=== PATIENT | male | born 1960 | race Caucasian/White ===

== ENCOUNTER → 2017-04-17 | Outpatient (CLI) | payer MEDICARE, OTHER ==
[2015-07-16 08:45] VITALS: BP 138/83
[~2017-04-17] MED LIST: DABI150C PO; DEXL60CA2 PO; SIMV40TA3 PO; TRAM50TA PO
--- NOTE | 2017-04-19 19:09 | EEG ---
DATE OF SERVICE: 04/17/2017 EEG#: [id number]. OBJECTIVE: The patient is a 56-year-old male with history of traumatic brain injury who has had some seizures. DESCRIPTION: This is a digital study. Electrodes are placed according to the international 10-20 system. Bipolar and referential montages are available. Activation procedures typically include hyperventilation and intermittent photic stimulation. INTERPRETATION: The waking background consists of 10 Hz, 50-100 microvolt activity. I do not detect reactivity to eye opening because the patient remains tense during much of the recording and there is quite a bit of muscle artifact and the patient is also legally blind. Hyperventilation is performed with no change in electroencephalogram patterns. Intermittent photic stimulation is noncontributory. Sleep is not achieved. IMPRESSION: This electroencephalogram with the patient awake only is within normal limits. There is no focal, paroxysmal, or epileptiform activity. VERA PARIKH MD DR: YASHIRA/adiel JOB#: [id number] / [id number] NGHIA Martinez
== END | disposition home or self-care (01) ==
LOC: RT 07:58
PROVIDERS: ATTEND Psychiatry & Neurology Neurology with Special Qualifications in Child Neurology
DX: R56.9 Unspecified convulsions (principal); R06.4 Hyperventilation; Z87.820 Personal history of traumatic brain injury
CPT/HCPCS: 95816

== ENCOUNTER → 2017-10-19 | Outpatient (CLI) | payer MEDICARE, OTHER | END | disposition home or self-care (01) | LOC: US 11:38 | DX: S81.801A Unspecified open wound, right lower leg, initial encounter (principal); Z86.718 Personal history of other venous thrombosis and embolism; X58.XXXA Exposure to other specified factors, initial encounter; Y93.89 Activity, other specified; Y92.89 Other specified places as the place of occurrence of the external cause; Y99.8 Other external cause status | CPT/HCPCS: 93925; 93970 ==

== ENCOUNTER → 2018-02-07 | Outpatient (CLI) | payer MEDICARE, OTHER | END | disposition home or self-care (01) | LOC: PMGWOUND 11:15 | DX: I87.331 Chronic venous hypertension (idiopathic) with ulcer and inflammation of right lower extremity (principal); L97.211 Non-pressure chronic ulcer of right calf limited to breakdown of skin; I10 Essential (primary) hypertension; E78.5 Hyperlipidemia, unspecified; M19.90 Unspecified osteoarthritis, unspecified site; F32.9 Major depressive disorder, single episode, unspecified; F41.9 Anxiety disorder, unspecified; Z86.718 Personal history of other venous thrombosis and embolism | CPT/HCPCS: 29581 ==

== ENCOUNTER → 2018-02-16 | Outpatient (CLI) | payer MEDICARE, OTHER | END | disposition home or self-care (01) | LOC: PMGWOUND 09:19 | DX: I87.331 Chronic venous hypertension (idiopathic) with ulcer and inflammation of right lower extremity (principal); L97.212 Non-pressure chronic ulcer of right calf with fat layer exposed; I10 Essential (primary) hypertension; E78.5 Hyperlipidemia, unspecified; M19.90 Unspecified osteoarthritis, unspecified site; F32.9 Major depressive disorder, single episode, unspecified; F41.9 Anxiety disorder, unspecified; Z86.718 Personal history of other venous thrombosis and embolism | CPT/HCPCS: 29581; 97597 ==

== ENCOUNTER → 2018-02-23 | Outpatient (CLI) | payer MEDICARE, OTHER ==
[2015-07-16 08:45] VITALS: BP 138/83
== END | disposition home or self-care (01) ==
LOC: PMGWOUND 08:58
PROVIDERS: ATTEND Preventive Medicine Undersea and Hyperbaric Medicine
DX: I87.331 Chronic venous hypertension (idiopathic) with ulcer and inflammation of right lower extremity (principal); L97.211 Non-pressure chronic ulcer of right calf limited to breakdown of skin; E78.5 Hyperlipidemia, unspecified; M19.90 Unspecified osteoarthritis, unspecified site; F32.9 Major depressive disorder, single episode, unspecified; F41.9 Anxiety disorder, unspecified; Z86.718 Personal history of other venous thrombosis and embolism
CPT/HCPCS: 29581

== ENCOUNTER → 2018-03-02 | Outpatient (CLI) | payer MEDICARE, OTHER ==
[2015-07-16 08:45] VITALS: BP 138/83
== END | disposition home or self-care (01) ==
LOC: PMGWOUND 08:11
PROVIDERS: ATTEND Preventive Medicine Undersea and Hyperbaric Medicine
DX: I87.331 Chronic venous hypertension (idiopathic) with ulcer and inflammation of right lower extremity (principal); L97.211 Non-pressure chronic ulcer of right calf limited to breakdown of skin; I10 Essential (primary) hypertension; E78.5 Hyperlipidemia, unspecified; M19.90 Unspecified osteoarthritis, unspecified site; F32.9 Major depressive disorder, single episode, unspecified; F41.9 Anxiety disorder, unspecified; Z86.718 Personal history of other venous thrombosis and embolism
CPT/HCPCS: 99213

== ENCOUNTER → 2018-03-09 | Outpatient (CLI) | payer MEDICARE, OTHER ==
[2015-07-16 08:45] VITALS: BP 138/83
== END | disposition home or self-care (01) ==
LOC: PMGWOUND 08:36
PROVIDERS: ATTEND Preventive Medicine Undersea and Hyperbaric Medicine
DX: I87.331 Chronic venous hypertension (idiopathic) with ulcer and inflammation of right lower extremity (principal); L97.211 Non-pressure chronic ulcer of right calf limited to breakdown of skin; I10 Essential (primary) hypertension; M19.90 Unspecified osteoarthritis, unspecified site; E78.4 Other hyperlipidemia; F41.9 Anxiety disorder, unspecified; E66.01 Morbid (severe) obesity due to excess calories; G43.909 Migraine, unspecified, not intractable, without status migrainosus; F32.9 Major depressive disorder, single episode, unspecified; Z68.36 Body mass index [BMI] 36.0-36.9, adult; Z86.73 Personal history of transient ischemic attack (TIA), and cerebral infarction without residual deficits; Z86.718 Personal history of other venous thrombosis and embolism
CPT/HCPCS: 99214; G0463

== ENCOUNTER → 2018-03-16 | Outpatient (CLI) | payer MEDICARE, OTHER ==
[2015-07-16 08:45] VITALS: BP 138/83
== END | disposition home or self-care (01) ==
LOC: PMGWOUND 09:12
PROVIDERS: ATTEND Preventive Medicine Undersea and Hyperbaric Medicine
DX: I87.331 Chronic venous hypertension (idiopathic) with ulcer and inflammation of right lower extremity (principal); L97.211 Non-pressure chronic ulcer of right calf limited to breakdown of skin; G43.909 Migraine, unspecified, not intractable, without status migrainosus; M19.90 Unspecified osteoarthritis, unspecified site; E78.4 Other hyperlipidemia; E66.01 Morbid (severe) obesity due to excess calories; F41.9 Anxiety disorder, unspecified; F32.9 Major depressive disorder, single episode, unspecified; Z68.36 Body mass index [BMI] 36.0-36.9, adult; Z86.73 Personal history of transient ischemic attack (TIA), and cerebral infarction without residual deficits; Z86.718 Personal history of other venous thrombosis and embolism
CPT/HCPCS: 29581

== ENCOUNTER → 2018-03-23 | Outpatient (CLI) | payer MEDICARE, OTHER ==
[2015-07-16 08:45] VITALS: BP 138/83
== END | disposition home or self-care (01) ==
LOC: PMGWOUND 08:50
PROVIDERS: ATTEND Preventive Medicine Undersea and Hyperbaric Medicine
DX: I87.331 Chronic venous hypertension (idiopathic) with ulcer and inflammation of right lower extremity (principal); L97.211 Non-pressure chronic ulcer of right calf limited to breakdown of skin; F32.9 Major depressive disorder, single episode, unspecified; F41.9 Anxiety disorder, unspecified; M19.90 Unspecified osteoarthritis, unspecified site; G43.909 Migraine, unspecified, not intractable, without status migrainosus; E78.4 Other hyperlipidemia; E66.01 Morbid (severe) obesity due to excess calories; Z68.36 Body mass index [BMI] 36.0-36.9, adult
CPT/HCPCS: 29581

== ENCOUNTER → 2018-03-30 | Outpatient (CLI) | payer MEDICARE, OTHER ==
[2015-07-16 08:45] VITALS: BP 138/83
== END | disposition home or self-care (01) ==
LOC: PMGWOUND 08:53
PROVIDERS: ATTEND Preventive Medicine Undersea and Hyperbaric Medicine
DX: I87.311 Chronic venous hypertension (idiopathic) with ulcer of right lower extremity (principal); L97.211 Non-pressure chronic ulcer of right calf limited to breakdown of skin; F41.9 Anxiety disorder, unspecified; F32.9 Major depressive disorder, single episode, unspecified; G43.909 Migraine, unspecified, not intractable, without status migrainosus; E78.4 Other hyperlipidemia; M19.90 Unspecified osteoarthritis, unspecified site; E66.01 Morbid (severe) obesity due to excess calories; Z68.36 Body mass index [BMI] 36.0-36.9, adult; Z86.73 Personal history of transient ischemic attack (TIA), and cerebral infarction without residual deficits; Z86.718 Personal history of other venous thrombosis and embolism
CPT/HCPCS: 29581

== ENCOUNTER → 2018-04-06 | Outpatient (CLI) | payer MEDICARE, OTHER ==
[2015-07-16 08:45] VITALS: BP 138/83
== END | disposition home or self-care (01) ==
LOC: PMGWOUND 09:05
PROVIDERS: ATTEND Nurse Practitioner Family
DX: I87.331 Chronic venous hypertension (idiopathic) with ulcer and inflammation of right lower extremity (principal); L89.892 Pressure ulcer of other site, stage 2; F41.9 Anxiety disorder, unspecified; F32.9 Major depressive disorder, single episode, unspecified; G43.909 Migraine, unspecified, not intractable, without status migrainosus; E78.4 Other hyperlipidemia; M19.90 Unspecified osteoarthritis, unspecified site; E66.01 Morbid (severe) obesity due to excess calories; Z68.36 Body mass index [BMI] 36.0-36.9, adult; Z86.73 Personal history of transient ischemic attack (TIA), and cerebral infarction without residual deficits; Z86.718 Personal history of other venous thrombosis and embolism
CPT/HCPCS: 99213

== ENCOUNTER → 2018-04-13 | Outpatient (CLI) | payer MEDICARE, OTHER ==
[2015-07-16 08:45] VITALS: BP 138/83
== END | disposition home or self-care (01) ==
LOC: PMGWOUND 09:11
PROVIDERS: ATTEND Preventive Medicine Undersea and Hyperbaric Medicine
DX: I87.331 Chronic venous hypertension (idiopathic) with ulcer and inflammation of right lower extremity (principal); L97.212 Non-pressure chronic ulcer of right calf with fat layer exposed; F41.9 Anxiety disorder, unspecified; F32.9 Major depressive disorder, single episode, unspecified; G43.909 Migraine, unspecified, not intractable, without status migrainosus; E78.4 Other hyperlipidemia; M19.90 Unspecified osteoarthritis, unspecified site; F44.5 Conversion disorder with seizures or convulsions; E66.01 Morbid (severe) obesity due to excess calories; Z68.36 Body mass index [BMI] 36.0-36.9, adult; Z86.718 Personal history of other venous thrombosis and embolism; Z86.73 Personal history of transient ischemic attack (TIA), and cerebral infarction without residual deficits; X58.XXXS Exposure to other specified factors, sequela
CPT/HCPCS: 29581; 97597

== ENCOUNTER → 2018-04-20 | Outpatient (CLI) | payer MEDICARE, OTHER ==
[2015-07-16 08:45] VITALS: BP 138/83
== END | disposition home or self-care (01) ==
LOC: PMGWOUND 09:00
PROVIDERS: ATTEND Preventive Medicine Undersea and Hyperbaric Medicine
DX: I87.331 Chronic venous hypertension (idiopathic) with ulcer and inflammation of right lower extremity (principal); L97.211 Non-pressure chronic ulcer of right calf limited to breakdown of skin; F32.9 Major depressive disorder, single episode, unspecified; F41.9 Anxiety disorder, unspecified; F44.5 Conversion disorder with seizures or convulsions; G43.909 Migraine, unspecified, not intractable, without status migrainosus; M19.90 Unspecified osteoarthritis, unspecified site; E78.4 Other hyperlipidemia; E66.01 Morbid (severe) obesity due to excess calories; Z68.36 Body mass index [BMI] 36.0-36.9, adult; Z86.718 Personal history of other venous thrombosis and embolism; Z86.73 Personal history of transient ischemic attack (TIA), and cerebral infarction without residual deficits
CPT/HCPCS: 29581

== ENCOUNTER → 2018-04-26 | Outpatient (CLI) | payer MEDICARE, OTHER ==
[2015-07-16 08:45] VITALS: BP 138/83
--- NOTE | 2018-04-26 13:41 | RAD ---
MR#: [id number] Date of Study: 04/26/2018 Ordering Physician: BLUE RAND, Referring Physician: Nedra STEWARD: Vero Locke RDMS RVT APPROVED REPORT Right Lower Extremity Venous Study for DVT Patient Location: OUT-PATIENT Indications NON HEALING WOUND RT LEG Findings Grayscale images of the right lower extremity deep veins were obtained. Technically limited images in the mid to distal SFA and below-knee segments. The common femoral vein, proximal and mid superficial femoral veins appear clearly compressible with normal color Doppler flow. There is no evidence of thrombus at the saphenofemoral junction. The distal superficial femoral vein is not well visualized. Popliteal segments are not well visualize d. Nonetheless, color Doppler flow is noted in the distal superficial femoral and popliteal veins. Be low-knee vessels were not well visualized but there is spontaneous flow noted. Critical Notification Critical Value: No <Conclusion> No convincing evidence of DVT in the right lower extremity although technically limited images at the level of the knee and below the knee. Signed by : Reno Caraballo, Electronically Approved : 04/26/2018 13:40:16
== END | disposition home or self-care (01) ==
LOC: US 12:14
PROVIDERS: ATTEND Internal Medicine Cardiovascular Disease
DX: S81.801D Unspecified open wound, right lower leg, subsequent encounter (principal); I10 Essential (primary) hypertension; Z86.73 Personal history of transient ischemic attack (TIA), and cerebral infarction without residual deficits; Z86.718 Personal history of other venous thrombosis and embolism; X58.XXXD Exposure to other specified factors, subsequent encounter
CPT/HCPCS: 93971

== ENCOUNTER → 2018-04-26 | Outpatient (CLI) | payer MEDICARE, OTHER ==
[2015-07-16 08:45] VITALS: BP 138/83
== END | disposition home or self-care (01) ==
LOC: PMGWOUND 08:25
PROVIDERS: ATTEND Preventive Medicine Undersea and Hyperbaric Medicine
DX: I87.331 Chronic venous hypertension (idiopathic) with ulcer and inflammation of right lower extremity (principal); L97.211 Non-pressure chronic ulcer of right calf limited to breakdown of skin; I10 Essential (primary) hypertension; F32.9 Major depressive disorder, single episode, unspecified; F41.9 Anxiety disorder, unspecified; G43.909 Migraine, unspecified, not intractable, without status migrainosus; F44.5 Conversion disorder with seizures or convulsions; M19.90 Unspecified osteoarthritis, unspecified site; E78.49 Other hyperlipidemia; E66.01 Morbid (severe) obesity due to excess calories; Z68.36 Body mass index [BMI] 36.0-36.9, adult; Z86.718 Personal history of other venous thrombosis and embolism; Z86.73 Personal history of transient ischemic attack (TIA), and cerebral infarction without residual deficits
CPT/HCPCS: 29581

== ENCOUNTER → 2018-05-04 | Outpatient (CLI) | payer MEDICARE, OTHER ==
[2015-07-16 08:45] VITALS: BP 138/83
== END | disposition home or self-care (01) ==
LOC: PMGWOUND 10:32
PROVIDERS: ATTEND Preventive Medicine Undersea and Hyperbaric Medicine
DX: I87.331 Chronic venous hypertension (idiopathic) with ulcer and inflammation of right lower extremity (principal); L97.211 Non-pressure chronic ulcer of right calf limited to breakdown of skin; F41.9 Anxiety disorder, unspecified; F32.9 Major depressive disorder, single episode, unspecified; G43.909 Migraine, unspecified, not intractable, without status migrainosus; E78.49 Other hyperlipidemia; M19.90 Unspecified osteoarthritis, unspecified site; E66.01 Morbid (severe) obesity due to excess calories; Z68.36 Body mass index [BMI] 36.0-36.9, adult; Z86.718 Personal history of other venous thrombosis and embolism
CPT/HCPCS: 29581

== ENCOUNTER → 2018-05-10 | Outpatient (CLI) | payer MEDICARE, OTHER ==
[2015-07-16 08:45] VITALS: BP 138/83
== END | disposition home or self-care (01) ==
LOC: PMGWOUND 08:17
PROVIDERS: ATTEND Emergency Medicine Undersea and Hyperbaric Medicine
DX: I87.331 Chronic venous hypertension (idiopathic) with ulcer and inflammation of right lower extremity (principal); L97.211 Non-pressure chronic ulcer of right calf limited to breakdown of skin; F41.9 Anxiety disorder, unspecified; F32.9 Major depressive disorder, single episode, unspecified; G43.909 Migraine, unspecified, not intractable, without status migrainosus; E78.49 Other hyperlipidemia; M19.90 Unspecified osteoarthritis, unspecified site; E66.01 Morbid (severe) obesity due to excess calories; Z68.36 Body mass index [BMI] 36.0-36.9, adult; Z86.718 Personal history of other venous thrombosis and embolism; Z86.73 Personal history of transient ischemic attack (TIA), and cerebral infarction without residual deficits
CPT/HCPCS: 99213

== ENCOUNTER → 2018-06-11 | Outpatient (CLI) | payer MEDICARE, OTHER ==
[2015-07-16 08:45] VITALS: BP 138/83
[~2018-06-11] MED LIST changes: +LIDOCAINE 1%/EPI 1:100,000 25 ML, SODIUM BICARBONATE VIAL 2.5 MEQ in IV NORMAL SALINE 5... SQ STA
--- NOTE | 2018-06-11 15:18 | CARD ---
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 HISTORY The patient is a 58 year-old male with a history of : Non healing Ulcer. INDICATION FOR PROCEDURE The indication(s) include : Symptomatic Chronic Venous Insufficiency s/p RF ablation of right GSV/LSV with non healing wound right lower extremity from sociology research assistant vein incompetency.. PROCEDURE NARRATIVE The patient was transferred to the procedure suite and the insufficient sociology research assistant veins were mapped by ultrasound and diagrammed on the underlying skin The patient was then positioned supine on the pr ocedure table. The entire limb was sterilely prepared and the lower extremity and treatment table we re sterilely draped. The RF stylet catheter was placed on the sterile field, flushed and wiped down , prepared, and connected by a sterile cable. The patient was placed in reverse-Trendelenburg position and local anesthesia was instilled in the sk in overlying the access site. A skin incision was made overlying the identified and mapped Perforato r vein entry site. The vein was punctured through the incision and using ultrasound guidance the RF stylet catheter was advanced into the Senior Research Analyst vein. After the RF probe position was verified by t he ultrasound, tumescent anesthesia was infiltrated, under ultrasound guidance, precisely into the pe rivenuus compartment a "halo" of fluid was noted around the vein. The patient was then placed in Trendelenburg position. After the RF probe position was again confirm ed with ultrasound imaging, moderate external compression was applied over the RF heating element, an d RF energy was applied. The probe was withdrawn while treating the incompetent sociology research assistant vein in a ll four quadrants each quadrant being trreated for 30 seconds. Repeat ultrasound of the Senior Research Analyst v ein was performed confirming successful treatment. The catheter and sheath were withdrawn and hemost asis established with direct pressure. Total treatment time for the Senior Research Analyst vein 6 minutes. After assuring hemostasis, the skin incisions over sociology research assistant veins were closed with a bandage and an external compression dressing was applied from the level of the foot to the most proximal level of t he thigh. Patient tolerated the procedure well. There were no immediate complications. Signed by : Blue Dixon, Electronically Approved : 06/11/2018 15:17:30
== END ==
LOC: VNUS 09:00
PROVIDERS: ATTEND Internal Medicine Cardiovascular Disease
DX: I87.331 Chronic venous hypertension (idiopathic) with ulcer and inflammation of right lower extremity (principal)
CPT/HCPCS: 36475; J3490; J7040

== ENCOUNTER → 2020-12-14 | Outpatient (CLI) | payer MEDICARE, OTHER ==
[2015-07-16 08:45] VITALS: BP 138/83
[~2020-12-14] MED LIST changes: -LIDOCAINE 1%/EPI 1:100,000 25 ML, SODIUM BICARBONATE VIAL 2.5 MEQ in IV NORMAL SALINE 5... SQ STA; +SIMV40TA18 PO; -SIMV40TA3 PO
--- NOTE | 2020-12-15 07:56 | RAD ---
MR#: [id number] Date of Study: 12/14/2020 Ordering Physician: BLUE RAND, Referring Physician: BLUE RAND, Tech: Emy Sandhu, RAMESH, OREN, RTR APPROVED REPORT Patient Location : OUT-PATIENT Indications Stasis Disease Non Healing Right Anterior Harley Wound Findings There are 2 perforators located approximately 29 and 20 cm up from the ankle on the right side measur ing 3.2 mm and 4.8 mm respectively with reflux times of 3.4 and 1.9 seconds. These perforators are n ot directly located in the wound but are the medial and superior and inferior edge of the wound. The perforators are mildly larger in comparison to previous ultrasound scan. Critical Notification Critical Value: No <Conclusion> 1. To incompetent perforators surrounding the wound as described above notable for reflux of greater than 1 second. Signed by : Reno Caraballo, Electronically Approved : 12/15/2020 07:56:08
== END ==
LOC: US 09:36
PROVIDERS: ATTEND Internal Medicine Cardiovascular Disease
DX: S81.801A Unspecified open wound, right lower leg, initial encounter (principal); X58.XXXA Exposure to other specified factors, initial encounter; Y93.89 Activity, other specified; Y92.89 Other specified places as the place of occurrence of the external cause; Y99.8 Other external cause status
CPT/HCPCS: 93971

== ENCOUNTER → 2021-03-16 | Outpatient (CLI) | payer MEDICARE, OTHER ==
[2015-07-16 08:45] VITALS: BP 138/83
[~2021-03-16] MED LIST changes: +LIDOCAINE 1%/EPI 1:100,000 25 ML, SODIUM BICARBONATE VIAL 2.5 MEQ in IV NORMAL SALINE 5... SQ ONE
--- NOTE | 2021-03-16 14:12 | CARD ---
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 INDICATION FOR PROCEDURE The indication(s) include : Idiopathic chronic venous hypertension with inflammation, varicose veins and nonhealing venous stasis ulcer. PROCEDURE NARRATIVE The patient was transferred to the procedure suite and the insufficient processing operator veins were mapped by ultrasound and diagrammed on the underlying skin The patient was then positioned supine on the pr ocedure table. The entire limb was sterilely prepared and the lower extremity and treatment table we re sterilely draped. The RF stylet catheter was placed on the sterile field, flushed and wiped down , prepared, and connected by a sterile cable. The patient was placed in reverse-Trendelenburg position and local anesthesia was instilled in the sk in overlying the access site. A skin incision was made overlying the identified and mapped Perforato r vein entry site. The vein was punctured through the incision and using ultrasound guidance the RF stylet catheter was advanced into the Fur Examiner vein. After the RF probe position was verified by t he ultrasound, tumescent anesthesia was infiltrated, under ultrasound guidance, precisely into the pe rivenuus compartment a "halo" of fluid was noted around the vein. The patient was then placed in Trendelenburg position. After the RF probe position was again confirm ed with ultrasound imaging, moderate external compression was applied over the RF heating element, an d RF energy was applied. The probe was withdrawn while treating the incompetent processing operator vein in a ll four quadrants each quadrant being trreated for 30 seconds. Repeat ultrasound of the Fur Examiner v ein was performed confirming successful treatment. The catheter and sheath were withdrawn and hemost asis established with direct pressure. The second Fur Examiner vein was then accessed and treated in a similar fashion with total treatment time for the Fur Examiner veins 2:10 and 2:01 minutes. After assuring hemostasis, the skin incisions over processing operator veins were closed with a bandage and an external compression dressing was applied from the level of the foot to the most proximal level of t he thigh. Patient tolerated the procedure well. There were no immediate complications. Signed by : Blue Dixon, Electronically Approved : 03/16/2021 14:11:49
--- NOTE | 2021-03-16 14:32 | CARD ---
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 INDICATION FOR PROCEDURE The indication(s) include : Idiopathic chronic venous hypertension with inflammation, varicose veins and nonhealing venous stasis ulcer. PROCEDURE NARRATIVE The patient was transferred to the procedure suite and the insufficient medical lab director veins were mapped by ultrasound and diagrammed on the underlying skin The patient was then positioned supine on the procedure table. The entire limb was sterilely prepared and the lower extremity and treatment table were sterilely draped. The RF stylet catheter was placed on the sterile field, flushed and wiped down, prepared, and connected by a sterile cable. The patient was placed in reverse-Trendelenburg position and local anesthesia was instilled in the skin overlying the access site. A skin incision was made overlying the identified and mapped Software Test And Validation Engineer vein entry site. The vein was punctured through the incision and using ultrasound guidance the RF stylet catheter was advanced into the Software Test And Validation Engineer vein. After the RF probe position was verified by the ultrasound, tumescent anesthesia was infiltrated, under ultrasound guidance, precisely into the perivenuus compartment a "halo" of fluid was noted around the vein. The patient was then placed in Trendelenburg position. After the RF probe position was again confirmed with ultrasound imaging, moderate external compression was applied over the RF heating element, and RF energy was applied. The probe was withdrawn while treating the incompetent medical lab director vein in all four quadrants each quadrant being trreated for 30 seconds. Repeat ultrasound of the Software Test And Validation Engineer vein was performed confirming successful treatment. The catheter and sheath were withdrawn and hemostasis established with direct pressure. The second Software Test And Validation Engineer vein was then accessed and treated in a similar fashion with total treatment time for the Software Test And Validation Engineer veins 2:10 and 2:01 minutes. After assuring hemostasis, the skin incisions over medical lab director veins were closed with a bandage and an external compression dressing was applied from the level of the foot to the most proximal level of the thigh. Patient tolerated the procedure well. There were no immediate complications. Signed by : Blue Dixon, Electronically Approved : 03/16/2021 14:11:49 DANIEL
== END ==
LOC: VNUS 12:30
PROVIDERS: ATTEND Internal Medicine Cardiovascular Disease
DX: I87.331 Chronic venous hypertension (idiopathic) with ulcer and inflammation of right lower extremity (principal); K21.9 Gastro-esophageal reflux disease without esophagitis; I48.91 Unspecified atrial fibrillation; F41.9 Anxiety disorder, unspecified; F32.9 Major depressive disorder, single episode, unspecified; Z98.890 Other specified postprocedural states
CPT/HCPCS: 36475; 36476; J3490; J7040